=== PATIENT | female | born 1990 | race Caucasian/White ===

== ENCOUNTER → 2020-08-02 15:50 | Outpatient (CLI) | payer OTHER, SELFPAY ==
--- NOTE | ~2020-08-02 | US_ITS ---
EXAMINATION: US OB >= 14 weeks Fetus DATE: 08/02/2020 16:37 INDICATION: survey TECHNIQUE: Multiple obstetric sonographic images performed. FINDINGS: No prior studies for comparison. There is a single living fetus in vertex presentation. The placenta is anterior without placenta pre via. Amniotic fluid volume is normal. cardiac activity and movement is noted with a heart rate of 150 beats per minute. The following anatomy was identified as normal: 4 chamber heart 3 vessel cord cord insertion kidneys urinary bladder stomach spine diaphragm ventricles cisterna magna cerebellum The following biometric data were obtained: BPD: 52mm corresponds to gestational age 21 weeks 5 days. Head circumference: 186 mm corresponds to gestational age 21 weeks 0 days. Abdominal circumference: 159 mm corresponds to gestational age 21 weeks 0 days. Femur length: 33 mm corresponds to gestational age 20 weeks 2 days. Head circumference to abdominal circumference ratio: 1.17 (normal range for expected gestational age is 1.06-1.25). Estimated weight: 375 grams +/- 56 grams using Hadlock method. IMPRESSION: 1: Single living intrauterine with an estimated gestational age of 21weeks 0days by current ultrasound measurements, with an EDC of 12/13/2020 in vertex presentation. 2. Normal survey. Reviewed, dictated and finalized at location A. IMPRESSION: 1: Single living intrauterine with an estimated gestational age of 21 weeks 0days by current ultrasound measurements, with an EDC of 12/13/2020 in ve rtex presentation. 2. Normal survey.
== END ==
PROVIDERS: PCP Internal Medicine; Visit Provider Nurse Practitioner
DX: Z36.9 Encounter for antenatal screening, unspecified (principal); Z3A.21 21 weeks gestation of pregnancy
CPT/HCPCS: 76805

== ENCOUNTER → 2020-09-23 13:47 | Outpatient (CLI) | payer OTHER, SELFPAY ==
--- NOTE | ~2020-09-23 | US_ITS ---
EXAMINATION: US OB follow up EXAM DATE: 09/23/2020 14:06 INDICATION: Size less than dates . 2nd trimester. TECHNIQUE: Pelvic obstetrical transabdominal sonogram was performed by a technologist. There are mu ltiple grayscale and Doppler images available for interpretation. Comparison is made to prior examina tion from 08/02/2020. FINDINGS: There is a single fetus identified in vertex presentation with a heart rate of 150 beats pe r minute. The placenta is located in the anterior position. There is no sonographic evidence of retr oplacental hemorrhage identified. The amniotic fluid index is 16.7 centimeters, which is normal. BIOMETRIC DATA: Biparietal diameter (BPD): 7.1cm ----------------> 28 weeks 3 days. Head circumference (HC): 26.1 cm ----------------> 28 weeks 2 days. Abdominal circumference (AC): 23.0 cm ----------> 27 weeks 2 days. Femur length (FL): 5.1 cm --------------------------> 27 weeks 1 day. These measurements are concordant. HC/AC ratio is 1.14 (The 5th -- 95th percentile range is 1.02-1.22. Estimated weight is 1075 g +/- 161 g. This is the 32nd percentile when the currently reported clinical gestation age 27 weeks 4 days, clinical estimated date of delivery (NICOLETTE-OPE) 12/19 is used. F etal estimated gestational age based on measurements from this exam is 27 weeks 6 days, with an estim ated date of delivery (NICOLETTE-AUA) 12/17. IMPRESSION: 1. Single fetus in vertex presentation with heart rate 150 beats per minute. 2. Estimated weight of 1075 grams, 32nd percentile using the currently reported clinical gesta tion age of 27 weeks 4 days, NICOLETTE(OPE) 12/19. 3. Normal DIMA 16.7 cm. Reviewed, dictated and finalized at location A. TH POLICY MANAGER IMPRESSION: 1. Single fetus in vertex presentation with heart rate 150 beats per minute. 2. Estimated weight of 1075 grams, 32nd percentile using the currently r eported clinical gestation age of 27 weeks 4 days, NICOLETTE(OPE) 12/19. 3. Normal DIMA 16.7 cm.
== END ==
PROVIDERS: Visit Provider Nurse Practitioner
DX: Z34.92 Encounter for supervision of normal pregnancy, unspecified, second trimester (principal); Z3A.27 27 weeks gestation of pregnancy
CPT/HCPCS: 76816

== ENCOUNTER 2020-09-26 15:40 | Outpatient (CLI) | payer OTHER, SELFPAY ==
[2020-09-26 17:37] LABS: Hematocrit 37.8 % (37.0-47.0)
[2020-09-26 17:48] LABS: Glucose 1 Hour PP 50gm Dose 117 mg/dL
[2020-09-26 18:29] LABS: HIV 1/2 Ab P24 Ag Result Negative (Negative)
[2020-09-26 19:44] LABS: Free T4 Free Thyroxine 1.17 ng/mL (0.78-2.19); Vitamin D 25 Hydroxy 65.5 ng/mL
[2020-09-27] MEDS: RHO(D) IMMUNE GLOBULIN 300 MCG SYRINGE IM (08:51)
== END 2020-09-26 15:41 | disposition home or self-care (01) ==
LOC: ANHLAB 15:43
PROVIDERS: PCP Internal Medicine; Visit Provider Obstetrics & Gynecology Gynecology
DX: Z34.03 Encounter for supervision of normal first pregnancy, third trimester (principal); Z3A.00 Weeks of gestation of pregnancy not specified
CPT/HCPCS: 36415; 82306; 82947; 84439; 84443; 85014; 85018; 85461; 86703; 90384; 96372; G0432; J2790

== ENCOUNTER 2020-12-13 05:20 | Inpatient (IN) | payer BC, SELFPAY ==
[2020-12-13] VITALS (19 sets, daily range): BP systolic 111–148; BP diastolic 70–98; PULSE 67–218; RESP 16–20; TEMP 36.5–37.2; O2SAT 80–98; BMI 30.4
--- NOTE | 2020-12-13 05:20 | LDADM ---
This patient, Brenda Wise, was admitted to Labor/Delivery/Recovery 105 on 12/13/20 at 05:20. Plans for labor, pain management and were discussed with patient. Patient/family oriented to hospital policies and general routines including ID bracelet, bed and alarms, visiting hours, pain management, procedures, bathroom and other care routines, personal items, smoking policy, room service/diet and guest tray routines, infant security routines, and visiting hours. Patient/Family are encouraged to report perceived risks to care and to ask questions if they do not understand what they are told or what they should do. See OBIX for further documentation.
[2020-12-13 06:15] LABS: Basophils Percent Auto 0.4 % (0.2-1.2); Eosinophils Percent Auto 0.4 % (0-4.4); Hematocrit 40.2 % (37.0-47.0); Hemoglobin 13.7 g/dL (12.0-15.0); Immature Granulocyte Absolute 0.07 K/mm3 (0.00-0.031); Immature Granulocyte Percent A 0.7 % (0-0.5); Lymphocytes Absolute Auto 1.63 K/mm3 (0.9-3.2); Lymphocytes Percent Auto 15.5 % (18.3-44.2); Mean Corpuscular HGB Conc 34.1 g/dl (32-36); Mean Corpuscular Hemoglobin 30.1 pg (26-34); Mean Corpuscular Volume 88.4 fl (80-100); Mean Platelet Volume 11.3 fl (7.4-10.4); Monocytes Absolute Auto 0.8 K/mm3 (0.1-0.6); Monocytes Percent Auto 7.4 % (2.6-8.5); Neutrophils Percent Auto 75.6 % (45.5-73.1); Platelet Count Result 207 k/mm3 (150-375); Red Blood Count 4.55 M/mm3 (4.2-5.4); Red Cell Distribution Width 12.6 % (11.5-14.5); White Blood Count 10.5 K/mm3 (4.5-10.0)
--- NOTE | 2020-12-13 07:39 | WPDOBADMIT ---
Obstetrics - Admit Note Admission Note: record reviewed. No pertinent additions to the history and/or any subsequent changes in the physical findings that are not consistent with the expected course of the were found. Additions to the history and/or subsequent changes in the physical findings follow. None.Here in labor. Now 3-/-2 AROM with clear fluid
[2020-12-13 08:12] LABS: Alanine Aminotransferase 14 U/L (4-35); Albumin Level 3.5 g/dL (3.5-5.1); Alkaline Phosphatase 115 U/L (38-126); Anion Gap 7 mmol/L (8-16); Aspartate Amino Transferase 23 U/L (14-36); Bilirubin,Total 0.8 mg/dL (0.2-1.3); Blood Urea Nitrogen 12 mg/dL (7-17); Calcium 8.7 mg/dL (8.4-10.2); Carbon Dioxide 22 mmol/L (22-30); Chloride 106 mmol/L (98-107); Estimated CRCL calculation 122 ml/min; Estimated Glomerular Filt Rate > 60; Glucose 93 mg/dL (65-105); Potassium 3.7 mmol/L (3.4-5.0); Sodium 135 mmol/L (137-145)
[2020-12-13 08:29] LABS: Uric Acid 5.2 mg/dL (2.5-7.5)
[2020-12-13] MEDS: fentaNYL CITRATE INJ (*CRX) 100 MCG/2 ML VIAL 50 MCG IV PUSH (09:59)
[2020-12-13 10:19] LABS: Rapid Plasma Reagin Non-Reactive (NonReactive)
[2020-12-13] MEDS: OXYTOCIN 30 UNITS/NS 500 ML 30 UNITS/500 ML BAG 999 UNITS IV CONT (10:55)
--- NOTE | 2020-12-13 11:07 | PM.OBPRVD ---
OB - Delivery Note Procedure Delivery date: 12/13/20 Procedure: Intrapartal events: None Induction method: none Delivery augmentation: rupture of membranes Delivery monitor: external FHT and external uterine Route of delivery: Laceration Description: Perineal - 2nd Degree (U-shaped with midline then up each labia majora) Delivery repair: vicryl (3-0 vicryl) Specimen: No Quantitative Blood Loss (ml): 652 Anesthesia type: Local Disposition: floor [place] Baby Date of : 12/13/20 Weeks of gestation at delivery: 39 Infant gender: Female presentation: vertex position: Right Occiput Anterior Placenta delivery description: Spontaneous cord vessel description: 3 Vessels score one minute: 9 score five minutes: 9
--- NOTE | 2020-12-13 11:09 | PM.OBDSVD ---
DS: Admitting Diagnosis Admitting Diagnosis Admitting Diagnosis: labor DS: Discharge Diagnosis Discharge Diagnosis (1) (normal spontaneous vaginal delivery): Code(s): O80 - Encounter for full-term uncomplicated delivery Status: Acute OB - DS: Summary OB Procedures : Ultrasound OB Procedures Intrapartum: Spontaneous Vag Delivery OB Procedures: : None Peripartum Data Infant Delivery Method: Natural Vaginal Laceration Description: Perineal - 2nd Degree complications: none Status at Discharge Functional status at discharge: independent ambulation Overall status at discharge: patient is progressing back to baseline Time Spent with Patient Time attestation: Total time spent providing and/or coordinating discharge services: DS: Data Data Completed and Pending Labs on day of discharge: Labs from last 24 hours 12/13/20 12/13/20 12/13/20 07:46 07:46 07:06 WBC RBC Hgb Hct MCV MCH MCHC RDW Plt Count MPV Immature Gran % (Auto) Neut % (Auto) Lymph % (Auto) [place] % (Auto) Eos % (Auto) Baso % (Auto) Lymph # (Auto) [place] # (Auto) Eos # (Auto) Baso # (Auto) Abs Immat Gran (auto) Absolute Neuts (auto) Absolute Nucleated RBC Nucleated RBC % Sodium 135 L Potassium 3.7 Chloride 106 Carbon Dioxide 22 Anion Gap 7 L BUN 12 Creatinine 0.60 L Estim Creat Clear Calc 122 Estimated GFR > 60 Glucose 93 Uric Acid 5.2 Calcium 8.7 Total Bilirubin 0.8 AST 23 ALT 14 Alkaline Phosphatase 115 Total Protein 7.0 Albumin 3.5 RPR Blood Type O Negative Antibody Screen Positive Antibody Identification Pending Antigen Identification Pending KAYLYNN, IgG Interpret Not Performed KAYLYNN, Poly Interpret Negative KAYLYNN, Complement Interp Pending 12/13/20 12/13/20 05:58 05:58 WBC 10.5 H RBC 4.55 Hgb 13.7 Hct 40.2 MCV 88.4 MCH 30.1 MCHC 34.1 RDW 12.6 Plt Count 207 MPV 11.3 H Immature Gran % (Auto) 0.7 H Neut % (Auto) 75.6 H Lymph % (Auto) 15.5 L [place] % (Auto) 7.4 Eos % (Auto) 0.4 Baso % (Auto) 0.4 Lymph # (Auto) 1.63 [place] # (Auto) 0.8 H Eos # (Auto) 0.0 Baso # (Auto) 0.0 Abs Immat Gran (auto) 0.07 H Absolute Neuts (auto) 8.0 H Absolute Nucleated RBC 0.0 Nucleated RBC % 0.0 Sodium Potassium Chloride Carbon Dioxide Anion Gap BUN Creatinine Estim Creat Clear Calc Estimated GFR Glucose Uric Acid Calcium Total Bilirubin AST ALT Alkaline Phosphatase Total Protein Albumin RPR Non-reactive Blood Type Antibody Screen Antibody Identification Antigen Identification KAYLYNN, IgG Interpret KAYLYNN, Poly Interpret KAYLYNN, Complement Interp Discharge Plan Discharge Attending physician on discharge: Nissa Ac Discharging Clinician: Nissa Ac Anticipated Discharge Date/Time: 12/15/20 11:10 Patient Disposition: Home, Self-Care Activity: may shower, may drive after 2 weeks and pelvic rest Diet: regular Patient Instructions: Antibiotic Form Stand Alone Forms: General Discharge Information Follow-up/Referrals: Nissa Ac MD [Physician] - 6 Weeks Discharge Medications: Continued levothyroxine [Synthroid] 100 mcg Tablet 100 mcg PO DAILY RF: 0 #2 Tablet 1 tablet PO DAILY RF: 0 ergocalciferol (vitamin D2) 1,250 mcg (50,000 unit) capsule 1,250 mcg PO WEEKLY RF: 0 duloxetine 30 mg capsule,delayed release(DR/EC) 30 mg PO DAILY RF: 0 Discontinued aspirin [Aspirin Low Dose] 81 mg Tablet,Delayed Release (Dr/Ec) 81 mg PO DAILY RF: 0 Date of admission: 12/13/20 05:20 Primary Care Provider: Lucina,Rebecca Dickerson Admitting Provider: Nissa Ac Attending physician on admission: Nissa Ac Condition: Stable
[2020-12-13] MEDS: OXYTOCIN 30 UNITS/NS 500 ML 30 UNITS/500 ML BAG 125 UNITS IV CONT (11:29)
[2020-12-13] MEDS: WITCH HAZEL 40 PADS 1 PAD TOPICAL (13:11)
[2020-12-13] MEDS: BENZOCAINE 20% AER SPR (*SP) 56 GM CAN 1 SPRAY TOPICAL (13:11)
[2020-12-13] MEDS: IBUPROFEN 600 MG TABLET PO ×2 (14:17→20:20)
--- NOTE | 2020-12-13 15:10 | PC.NURSE ---
Consulted with patient, mother reported infant eagerly fed for first feeding. Both nipples are excoriated, reviewed nipple care of lanolin after feedings and warm moist compresses several times per day until healed. Reviewed infant feeding cues, frequencies, duration of feedings, feeding elimination flow sheet, and signs of adequate intake. Demonstrated stimulation techniques to wake infant for feeding. Assisted with infant to breast. Reviewed positioning/alignment in cross cradle, holding breast in U hold and guided asymmetrical latch on. Infant was able to latch correctly. Infant nursed eagerly, with steady draws and frequent swallowing noted. Reviewed signs of a correct latch, effective nursing and suck swallow ratio. Infant was able to maintain latch without discomfort to mother. Nipple care reviewed. Instructed mother to call out for RN assistance if she is unable to latch infant for feeding or she has discomfort with nursing. Instructed feeding should be initiated three hours from start of last feeding or if feeding cues are noted before. Mother voiced understanding of information shared.
[2020-12-14 05:21] LABS: Hematocrit 28.5 % (37.0-47.0); Hemoglobin 9.6 g/dL (12.0-15.0)
[2020-12-14] MEDS: POLYSACCHARIDE IRON COMPLEX 150 MG CAPSULE PO ×2 (06:48→20:00)
[2020-12-14] MEDS: DOCUSATE SODIUM 100 MG CAPSULE PO ×2 (06:49→20:00)
[2020-12-14] MEDS: MULTIVIT/MIN/PREN/FOL AC/IRON TABLET 1 TAB PO (06:49)
[2020-12-14] MEDS: IBUPROFEN 600 MG TABLET PO ×2 (06:49→14:57)
[2020-12-14 07:00] VITALS: PULSE 77; RESP 18; O2SAT 100
[2020-12-14 07:50] VITALS: BP 123/80; PULSE 77; RESP 18; TEMP 36.8; O2SAT 100
--- NOTE | 2020-12-14 11:20 | PC.NURSE ---
Mother called out for assist with feeding. Consulted with patient, mother reports she began with nipple discomfort at latch during most of the feeding. had difficulties latching deeply and maintaining latch. Both nipples are reddened, nipple care reviewed and lanolin provided. Advised warm moist heat for 10 minutes then use gel pads provided. Mother was given a nipple shield for feedings. Mother has infant latched with shield for this feeding. Reviewed positioning/alignment in football, holding breast in C hold and guided asymmetrical latch on. was able to latch correctly within a few attempts. Infant nursed eagerly, with steady draws and frequent swallowing noted. Reviewed signs of a correct latch, effective nursing and suck swallow ratio. was able to maintain latch. Mother reported tenderness at times, had slipped to shallow latch. Demonstrated how to adjust latch more deeply while feeding. Mother quickly reports she can feel infant is latched more deeply and has minimal tenderness. Suggested to stimulate while feeding to keep awake and nursing effectively for increased stimulation and increased intake. Reviewed instructions on application and cleaning of shield. Discussed nipple shield precautions and possible complications. Patient able to return demonstration on proper application of shield. Discussed the need to initiate pumping if continues to nurse with the shield. Patient verbalizes understanding. Instructed mother to call out for RN assistance if she is unable to latch for feeding or she has discomfort with nursing. Instructed feeding should be initiated three hours from start of last feeding or if feeding cues are noted before. Mother voiced understanding of information shared.
--- NOTE | 2020-12-14 13:10 | PC.NURSE ---
Mother wishes instructions on her Spectra pump. Instructions given on breast pump care and usage, pumping schedule, nipple care, and collection and storage of breast milk. Encouraged [id number], breast massage and manual expression to stimulate supply. Assessed patient for correct flange size, placement and draw. Patient verbalizes and demonstrates understanding of instructions.
[2020-12-14] MEDS: WITCH HAZEL 40 PADS 1 PAD TOPICAL (14:58)
[2020-12-14] MEDS: BENZOCAINE 20% AER SPR (*SP) 56 GM CAN 1 SPRAY TOPICAL (14:58)
[2020-12-14 20:00] VITALS: BP 121/85; PULSE 80; RESP 16; TEMP 37.1
[2020-12-14] MEDS: DULoxetine HCL 30 MG CAPSULE.DR PO (21:00)
[2020-12-15] MEDS: IBUPROFEN 600 MG TABLET PO (05:55)
--- NOTE | 2020-12-15 07:30 | PC.NURSE ---
Patient viewed the discharge video Mother & Baby Care, The First Two Weeks . Patient was given the opportunity and encouraged to ask questions. Patient verbalized understanding of information shared and has been given the mother/baby guide for home reference.
--- NOTE | 2020-12-15 07:54 | PM.OBPNVD ---
OB - PN: Subj Subjective Date/time seen: 12/15/20 07:54 Patient comments: no complaints and pain well controlled baby status: doing well OB - PN: Obj Data Labs CBC & Chem 7: 12/14/20 05:04 12/13/20 07:46 OB - PN A/P Plan day: 1 Plan: routine care, discharge home and follow up 6 weeks Time Spent With Patient Time: Total time spent is greater than 50% in coordination of care (as documented) at patient's floor/unit and/or counseling patient: Exam : Bimanual exam- vagina & uterus: other (Uterus firm, nt @U)
[2020-12-15 08:00] VITALS: BP 132/79; PULSE 87; RESP 20; RESP 87; TEMP 36.5; O2SAT 100
[2020-12-15] MEDS: WITCH HAZEL 40 PADS 1 PAD TOPICAL (08:52)
[2020-12-15] MEDS: MULTIVIT/MIN/PREN/FOL AC/IRON TABLET 1 TAB PO (08:52)
[2020-12-15] MEDS: DOCUSATE SODIUM 100 MG CAPSULE PO (08:52)
[2020-12-15] MEDS: POLYSACCHARIDE IRON COMPLEX 150 MG CAPSULE PO (08:52)
[2020-12-15] MEDS: LANOLIN (LANSINOH) 7.5 GM CREAM 1 APPLIC TOPICAL (08:52)
[2020-12-15] MEDS: BENZOCAINE 20% AER SPR (*SP) 56 GM CAN 1 SPRAY TOPICAL (08:52)
--- NOTE | 2020-12-15 09:30 | PC.NURSE ---
Consult with pt., mother states infant has been more awake and eagerly latching. Mother has implemented supplementation after most feedings and plan to continue until her milk is in and infant is satisfied after . Mother states infant will freq latch without shield, reporting some tenderness with feedings. Advised the goal is to have infant latch correctly and nurse without discomfort to mother, weaning from shield does not need to be rushed. Mother continues to pump after feedings using her Spectra pump, which she denies difficulties or discomfort with use. Discussed weaning techniques from shield. Mother is able to independently latch infant with appropriate positioning/alignment. She is feeding as required and waking to feed if needed. Infant has had several effective feedings followed with supplementation in the past 24 hours, and is currently meeting outcomes for weight, output, jaundice and feeding frequencies. Mother states she feels confident to continue current feeding plan at home. Reviewed transition to breast milk, signs of adequate intake, and engorgement/relief. Instructed to call ICP if intake/output less than required. Reviewed regular medications mother is taking. Information provided per Elly. Reviewed community resources on the [employer] website and in the Mom/Baby guide. Mother understand she can return for assist with latch or weaning from shield. Information on outpatient services provided. Mother has no further questions at this time.
--- NOTE | 2020-12-15 09:36 | PC.NURSE ---
Self care and infant care discharge instructions given including follow up visit date and time. Pt. verbalized understanding. No questions or concerns voiced. Very pleasant and cooperative.
[2020-12-16 11:27] VITALS: BP 125/76; PULSE 86; RESP 16; TEMP 36.5; O2SAT 100
== END 2020-12-15 12:35 | disposition home or self-care (01) | DRG 807 ==
LOC: ANHLDR 11:10 → ANHOB2 13:58
PROVIDERS: Admitting Provider Obstetrics & Gynecology Gynecology; PCP Internal Medicine; Visit Provider Obstetrics & Gynecology Gynecology
DX: O99.284 Endocrine, nutritional and metabolic diseases complicating childbirth (principal); Z37.0 Single live birth; Z3A.39 39 weeks gestation of pregnancy; E06.3 Autoimmune thyroiditis; O70.1 Second degree perineal laceration during delivery; O99.344 Other mental disorders complicating childbirth; F41.8 Other specified anxiety disorders
CPT/HCPCS: 36415; 80053; 84550; 85014; 85018; 85025; 86592; 86850; 86880; 86900; 86901; 86902; A9270; J2590; J3010

== ENCOUNTER → 2023-04-04 09:45 | Outpatient (CLI) | payer BC, SELFPAY | PROVIDERS: PCP Internal Medicine; Visit Provider Internal Medicine | DX: M79.671 Pain in right foot (principal) | CPT/HCPCS: 73630 ==

== ENCOUNTER 2024-03-25 07:42 | Outpatient (RCR) | payer BC, SELFPAY ==
[2024-03-25 09:20] LABS: Hematocrit 36.4 % (37.0-47.0); Hemoglobin 11.7 g/dL (12.0-15.0)
[2024-03-25 09:32] LABS: Glucose 1 Hour PP 50gm Dose 101 mg/dL
[2024-03-25 10:15] LABS: HIV 1/2 Ab P24 Ag Result Negative (Negative)
[2024-03-26 11:38] LABS: Rapid Plasma Reagin Non-Reactive (NonReactive)
[2024-03-26] MEDS: RHO(D) IMMUNE GLOBULIN 300 MCG/2 ML SYRINGE IM (16:30)
== END 2024-06-23 23:59 | disposition home or self-care (01) ==
LOC: ANHLAB 07:42
PROVIDERS: PCP Internal Medicine; Visit Provider Obstetrics & Gynecology Gynecology
DX: Z11.4 Encounter for screening for human immunodeficiency virus [HIV] (principal); Z11.3 Encounter for screening for infections with a predominantly sexual mode of transmission; Z29.13 Encounter for prophylactic Rho(D) immune globulin; O36.0190 Maternal care for anti-D [Rh] antibodies, unspecified trimester, not applicable or unspecified; Z3A.00 Weeks of gestation of pregnancy not specified
CPT/HCPCS: 36415; 82306; 82947; 85014; 85018; 85461; 86592; 86703; 86850; 86900; 86901; 90384; 96372; G0432; J2790

== ENCOUNTER 2024-05-18 17:19 | Outpatient (CLI) | payer BC, SELFPAY ==
[2024-05-18] VITALS (30 sets, daily range): BP systolic 133–146; BP diastolic 91–96; PULSE 64–82; O2SAT 98–100; BMI 34.4
[2024-05-18 18:05] LABS: Basophils Percent Auto 0.4 % (0.2-1.2); Eosinophils Percent Auto 0.2 % (0-4.4); Hematocrit 39.6 % (37.0-47.0); Immature Granulocyte Absolute 0.04 K/mm3 (0.00-0.031); Immature Granulocyte Percent A 0.5 % (0-0.5); Lymphocytes Absolute Auto 1.89 K/mm3 (0.9-3.2); Lymphocytes Percent Auto 22.9 % (18.3-44.2); Mean Corpuscular HGB Conc 32.8 g/dl (32-36); Mean Corpuscular Hemoglobin 30.1 pg (26-34); Mean Corpuscular Volume 91.7 fl (80-100); Mean Platelet Volume 11.8 fl (7.4-10.4); Monocytes Absolute Auto 0.6 K/mm3 (0.1-0.6); Monocytes Percent Auto 7.5 % (2.6-8.5); Neutrophils Absolute Auto 5.7 K/mm3 (1.3-6.7); Neutrophils Percent Auto 68.5 % (45.5-73.1); Platelet Count Result 156 k/mm3 (150-375); Red Blood Count 4.32 M/mm3 (4.2-5.4); White Blood Count 8.3 K/mm3 (4.5-10.0)
[2024-05-18 18:13] LABS: Add Urine Microscopic? YES; Appearance Urine Clear (Clear); Bacteria Urine 2+ /hpf; Bilirubin Urine Negative (Negative); Blood Urine Negative (Negative); Color Urine Yellow (Yellow); Glucose Urine UA Negative (Negative); Ketones Urine Trace mg/dL (Negative); Leukocyte Esterase Ur Trace LEU/UL (Negative); Nitrate Urine Negative (Negative); Non Pathogenic Casts 0-2; Protein Urine Trace mg/dL (Negative); RBC Urine 0-2 /hpf (0-2); Specific Grav Ur 1.022 (1.001-1.035); Squamous Epithelial Cell Urine Occasional /hpf (Few); Urobilinogen Urine 0.2 mg/dL (<2.0); pH Urine 7.5 (5.0-9.0)
[2024-05-18 18:16] LABS: Alanine Aminotransferase 25 U/L (6-35); Albumin Level 3.8 g/dL (3.5-5.1); Alkaline Phosphatase 146 U/L (38-126); Anion Gap 12 mmol/L (4-12); Aspartate Amino Transferase 37 U/L (14-36); Bilirubin,Total 0.8 mg/dL (0.2-1.3); Blood Urea Nitrogen 13 mg/dL (7-17); Calcium 9.3 mg/dL (8.4-10.2); Carbon Dioxide 21 mmol/L (22-30); Chloride 102 mmol/L (98-107); Estimated Glomerular Filt Rate > 60; Glucose 76 mg/dL (65-110); Potassium 4.3 mmol/L (3.4-5.0); Sodium 135 mmol/L (137-145); Uric Acid 6.7 mg/dL (2.5-7.5)
--- NOTE | 2024-05-18 18:17 | OBADM ---
This patient, Brenda Wise, admitted to the OB room Labor/Delivery/Recovery 118 for observation. Patient/family oriented to hospital policies and general routines including ID bracelet, bed and alarms, visiting hours, pain management, procedures, bathroom and other care routines, personal items, smoking policy, room service/diet, and visiting hours. Patient/Family are encouraged to report perceived risks to care and to ask questions if they do not understand what they are told or what they should do.
[2024-05-18 19:01] LABS: Creatinine Urine 163.9 mg/dL
[2024-05-18 19:23] LABS: Total Protein Urine Random < 5 mg/dL; Ur Ttl Prot Creatinine Ratio < 0.03 mg/mg (0-0.20)
--- NOTE | 2024-05-18 19:39 | PC.NURSE ---
Talked to Doctor Osorio at this time. Reported labs, maternal and status. orders for 24 hour urine and to call Saturday for results, dc orders given and to go home on bedrest
== END 2024-05-18 20:31 | disposition home or self-care (01) ==
LOC: ANHOBOP 17:24 → ANHLDR 17:25
PROVIDERS: PCP Internal Medicine; Visit Provider Obstetrics & Gynecology Gynecology
DX: O13.9 Gestational [pregnancy-induced] hypertension without significant proteinuria, unspecified trimester (principal); Z3A.00 Weeks of gestation of pregnancy not specified
CPT/HCPCS: 36415; 59025; 80053; 81001; 82570; 84156; 84550; 85025; 87086; 99199

== ENCOUNTER 2024-05-19 10:03 | Outpatient (CLI) | payer BC, SELFPAY ==
[2024-05-19 10:25] VITALS: BP 125/86
[2024-05-19 10:30] VITALS: BP 125/86; PULSE 79
[2024-05-19 10:45] VITALS: BP 124/85; PULSE 76
[2024-05-19 11:00] VITALS: BP 126/80; PULSE 72
== END 2024-05-19 11:30 | disposition home or self-care (01) ==
LOC: ANHOBOP 10:07 → ANHLDR 10:11
PROVIDERS: PCP Internal Medicine; Visit Provider Obstetrics & Gynecology Gynecology
DX: O13.9 Gestational [pregnancy-induced] hypertension without significant proteinuria, unspecified trimester (principal); Z3A.00 Weeks of gestation of pregnancy not specified
CPT/HCPCS: 59025; 99199

== ENCOUNTER 2024-05-19 21:37 | Outpatient (NON) | payer BC, SELFPAY ==
[2024-05-19 21:57] VITALS: BMI 35.2
[2024-05-19 22:11] LABS: Collection Time Urine 24 HOURS; Patient Weight 205 Lbs
[2024-05-19 22:21] LABS: Creatinine Urine 79.2 mg/dL; Total Protein Urine Random 7 mg/dL
[2024-05-19 22:25] LABS: Creatinine Clearance Urine 114.7 ml/min (75-125); Total Protein Urine 24 Hr 133 mg/24hr (28-141); Total Volume 24 Hour Urine 1900 ml
== END 2024-05-19 21:38 | disposition home or self-care (01) ==
LOC: ANHOBOP 21:46
PROVIDERS: PCP Internal Medicine; Visit Provider Obstetrics & Gynecology Gynecology
DX: O13.9 Gestational [pregnancy-induced] hypertension without significant proteinuria, unspecified trimester (principal); R80.9 Proteinuria, unspecified; Z3A.00 Weeks of gestation of pregnancy not specified
CPT/HCPCS: 59025; 81050; 82575; 84156; 99199

== ENCOUNTER 2024-05-28 05:02 | Inpatient (IN) | payer BC, SELFPAY ==
[2024-05-28] VITALS (234 sets, daily range): BP systolic 123–171; BP diastolic 67–113; PULSE 59–296; RESP 18; TEMP 36.4–38.1; O2SAT 86–100; BMI 35.7
--- NOTE | 2024-05-28 05:45 | LDADM ---
This patient, Brenda Wise, was admitted to Labor/Delivery/Recovery 102 on 05/28/24 at 05:02. Plans for labor, pain management and were discussed with patient. Patient/family oriented to hospital policies and general routines including ID bracelet, bed and alarms, visiting hours, pain management, procedures, bathroom and other care routines, personal items, smoking policy, room service/diet and guest tray routines, infant security routines, and visiting hours. Patient/Family are encouraged to report perceived risks to care and to ask questions if they do not understand what they are told or what they should do. See OBIX for further documentation.
[2024-05-28 05:47] LABS: Basophils Percent Auto 0.5 % (0.2-1.2); Eosinophils Percent Auto 0.5 % (0-4.4); Hematocrit 38.2 % (37.0-47.0); Hemoglobin 13.1 g/dL (12.0-15.0); Immature Granulocyte Absolute 0.04 K/mm3 (0.00-0.031); Immature Granulocyte Percent A 0.5 % (0-0.5); Lymphocytes Absolute Auto 2.11 K/mm3 (0.9-3.2); Mean Corpuscular HGB Conc 34.3 g/dl (32-36); Mean Corpuscular Hemoglobin 30.5 pg (26-34); Mean Corpuscular Volume 88.8 fl (80-100); Mean Platelet Volume 11.8 fl (7.4-10.4); Monocytes Absolute Auto 0.5 K/mm3 (0.1-0.6); Monocytes Percent Auto 5.9 % (2.6-8.5); Neutrophils Absolute Auto 5.4 K/mm3 (1.3-6.7); Neutrophils Percent Auto 66.6 % (45.5-73.1); Platelet Count Result 141 k/mm3 (150-375); Red Cell Distribution Width 12.8 % (11.5-14.5); White Blood Count 8.1 K/mm3 (4.5-10.0)
[2024-05-28] MEDS: LACTATED RINGERS 1,000 ML 125 ML IV CONT ×2 (06:32→07:53)
[2024-05-28 06:37] LABS: HIV 1/2 Ab P24 Ag Result Negative (Negative)
[2024-05-28] MEDS: ceFAZolin 2 GM/D5W 50 ML 2 GM/50 ML BAG IVPB (06:50)
[2024-05-28] MEDS: LABETALOL HCL 100 MG TABLET PO ×2 (07:10→09:49)
--- NOTE | 2024-05-28 07:21 | WPDOBADMIT ---
Obstetrics - Admit Note Admission Note: record reviewed. Pertinent additions to the history and/or any subsequent changes in the physical findings that are not consistent with the expected course of the were found. Additions to the history and/or subsequent changes in the physical findings follow. The Patient was admitted at 37-,1/7 weeks with di-di twins in the vertex breech presentation for induction of labor. complicated by gestational hypertension which was the indication for early delivery. Many discussions in the office regarding diet twin deliveries and presentation. Twin B is 1lb smaller than twin A therefore if twin B remains breech at the time of delivery of twin a the patient is okay with a breech extraction of twin B if it does not rotate. Risks of emergency for twin B have been discussed in detail as well. The patient has decided to get an epidural. She prefers of rupture of membranes and observation to see if she goes into labor. The recommendation if not liseth significantly by 2hours to start Pitocin and patient was agreeable. Bedside ultrasound reveals vertex/breech presentation Cervix 4/50/-2 with anterior cervix, artificial rupture of membranes with clear fluid. heart tones category 1x2 Blood pressures have had 100s in the diastolics since admission therefore labetalol 100mg has been ordered.
[2024-05-28 07:27] LABS: Alanine Aminotransferase 19 U/L (6-35); Albumin Level 3.5 g/dL (3.5-5.1); Alkaline Phosphatase 162 U/L (38-126); Anion Gap 11 mmol/L (4-12); Aspartate Amino Transferase 29 U/L (14-36); Bilirubin,Total 0.7 mg/dL (0.2-1.3); Blood Urea Nitrogen 15 mg/dL (7-17); Calcium 8.9 mg/dL (8.4-10.2); Carbon Dioxide 18 mmol/L (22-30); Chloride 105 mmol/L (98-107); Estimated CRCL calculation 88 ml/min; Estimated Glomerular Filt Rate > 60; Glucose 94 mg/dL (65-110); Potassium 3.6 mmol/L (3.4-5.0); Sodium 134 mmol/L (137-145); Uric Acid 7.5 mg/dL (2.5-7.5)
[2024-05-28 07:56] LABS: Rapid Plasma Reagin Non-Reactive (NonReactive)
--- NOTE | 2024-05-28 07:58 | WPDANESEPP ---
Anes - Eval Pre Procedure Procedure: Operation Date: 06/03/24 07:30 Proposed Procedures p Section - Nissa Ac MD Date/Time: 05/28/24 07:58 Surgeon: Osorio Preop Diagnosis: Pain during labor Pre Op Diagnosis: IOL Patient Data Age: 34 Gender: F Height: 1.63 m Weight: 94.5 kg Last Vital Signs Temp 37.4 C 05/28/24 07:42 Pulse 73 05/28/24 07:30 BP 144/103 H 05/28/24 07:30 Pulse Ox 99 05/28/24 07:56 O2 Del Method Room Air 05/28/24 05:17 Allergies Allergy/AdvReac Type Severity Reaction Status Date / Time Penicillins Allergy Hives Verified 05/18/24 18:10 Home Medications Medication Instructions Recorded Confirmed Type prenat.vits,brian,[id number] 1 tablet PO DAILY 11/21/20 05/18/24 History aspirin 81 mg tablet 81 mg PO DAILY 05/06/24 05/18/24 History levothyroxine 125 mcg tablet 125 mcg PO DAILY 05/06/24 05/18/24 History (Synthroid) sertraline 50 mg tablet 50 mg PO DAILY 05/06/24 05/18/24 History Laboratory Tests 05/28/24 05/28/24 05:40 07:02 WBC 8.1 K/mm3 (4.5-10.0) RBC 4.30 M/mm3 (4.2-5.4) Hgb 13.1 g/dL (12.0-15.0) Hct 38.2 % (37.0-47.0) MCV 88.8 fl (80-100) MCH 30.5 pg (26-34) MCHC 34.3 g/dl (32-36) RDW 12.8 % (11.5-14.5) Plt Count 141 L k/mm3 (150-375) MPV 11.8 H fl (7.4-10.4) Immature Gran % (Auto) 0.5 % (0-0.5) Neut % (Auto) 66.6 % (45.5-73.1) Lymph % (Auto) 26.0 % (18.3-44.2) [place] % (Auto) 5.9 % (2.6-8.5) Eos % (Auto) 0.5 % (0-4.4) Baso % (Auto) 0.5 % (0.2-1.2) Lymph # (Auto) 2.11 K/mm3 (0.9-3.2) [place] # (Auto) 0.5 K/mm3 (0.1-0.6) Eos # (Auto) 0.0 K/mm3 (0-0.3) Baso # (Auto) 0.0 K/mm3 (0.0-0.1) Abs Immat Gran (auto) 0.04 H K/mm3 (0.00-0.031) Absolute Neuts (auto) 5.4 K/mm3 (1.3-6.7) Absolute Nucleated RBC 0.000 K/mm3 (0.0-0.012) Nucleated RBC % 0.0 % (0.0-0.2) Sodium 134 L mmol/L (137-145) Potassium 3.6 mmol/L (3.4-5.0) Chloride 105 mmol/L (98-107) Carbon Dioxide 18 L mmol/L (22-30) Anion Gap 11 mmol/L (4-12) BUN 15 mg/dL (7-17) Creatinine 0.90 mg/dL (0.7-1.0) Estim Creat Clear Calc 88 ml/min Estimated GFR > 60 (59 - ) Glucose 94 mg/dL (65-110) Uric Acid 7.5 mg/dL (2.5-7.5) Calcium 8.9 mg/dL (8.4-10.2) Total Bilirubin 0.7 mg/dL (0.2-1.3) AST 29 U/L (14-36) ALT 19 U/L (6-35) Alkaline Phosphatase 162 H U/L (38-126) Total Protein 7.0 g/dL (6.3-8.2) Albumin 3.5 g/dL (3.5-5.1) RPR Non-reactive (NonReactive) HIV 1&2 Ab/P24 Ag 4thGn Negative (Negative) Blood Type O Negative Antibody Screen Positive Antibody Identification Pending Antigen Identification Pending KAYLYNN, IgG Interpret Neg KAYLYNN, Poly Interpret TNP KAYLYNN, Complement Interp Pending Patient hx anesthesia problems: none Family hx anesthesia problems: none Results Review: All pre-operative results and documents have been reviewed as part of the pre-operative evaluation. [facility] Family History Family History Father High cholesterol Prostate carcinoma Hypertension Mother Breast cancer in female High cholesterol Melanoma Hypertension Congestive heart failure Social History Social History Smoking status: Never smoker Second hand tobacco smoke exposure: No Substance use: never Do You Feel Safe in your Home?: No Lack of Transportation: No Lack of Food: Never True Current Housing: I Have Housing Concerned About Future Housing: No Difficulty Paying Gas/Electric Bills: No Difficulty Paying for M
[2024-05-28] MEDS: OXYTOCIN 30 UNITS/NS 500 ML 30 UNITS/500 ML BAG IV CONT (08:25)
[2024-05-28] MEDS: NIFEdipine 30 MG TAB.ER.24 PO (11:16)
--- NOTE | 2024-05-28 14:55 | PM.OBPRVD ---
OB - Vaginal Delivery Note Procedure Delivery date: 05/28/24 Events: Gestational Hypertension and Other (Di-Di twins) Induction method: AROM and Per Pitocin Protocol Delivery monitor: External FHT and External Uterine Route of delivery: other (Twin A -Twin B breech extraction) Episiotomy description: None Laceration Description: Perineal - 2nd Degree Delivery repair: vicryl (3-0) Specimen: Yes (placentas) Quantitative Blood Loss (ml): 400 Anesthesia type: Epidural Disposition: Floor Complications: No immediate complications [place] Baby Date of : 05/28/24 Gestational Age by Date: 37 (37 10/13) Infant gender: Male Weight (pounds): 7 presentation: vertex position: Right Occiput Anterior Placenta delivery description: Spontaneous Cord Vessel Description: 3 Vessels score one minute: 3 score five minutes: 8 Narrative: Twin B Apgars and weight not assigned when I left OR 3 v cord
--- NOTE | 2024-05-28 14:59 | PM.OBDSVD ---
DS: Admitting Diagnosis Discharge Date 05/30/2024 <Delon Danielson MD - Last Filed: 05/30/24 07:00> Admitting Diagnosis IUP 37 10/13 di-di twins with gestational hypertension <Nissa Ac MD - Last Filed: 06/01/24 07:37> DS: Discharge Diagnosis Discharge Diagnosis (1) Dichorionic diamniotic twin gestation: Code(s): O30.049 - Twin , dichorionic/diamniotic, unspecified trimester <Nissa Ac MD - Last Filed: 06/01/24 07:37> Status: Acute <Nissa Ac MD - Last Filed: 06/01/24 07:37> (2) 37 or more weeks gestation of : Status: Acute <Nissa Ac MD - Last Filed: 06/01/24 07:37> (3) Gestational hypertension: Code(s): O13.9 - Gestational [-induced] hypertension without significant proteinuria, unspecified trimester <Nissa Ac MD - Last Filed: 06/01/24 07:37> Status: Acute <Nissa Ac MD - Last Filed: 06/01/24 07:37> (4) Twin delivered vaginally: Code(s): O30.009 - Twin , unspecified number of placenta and unspecified number of amniotic sacs, unspecified trimester <Nissa Ac MD - Last Filed: 06/01/24 07:37> Status: Acute <Nissa Ac MD - Last Filed: 06/01/24 07:37> (5) hemorrhage: Code(s): O72.1 - Other immediate hemorrhage <Nissa Ac MD - Last Filed: 06/01/24 07:37> Status: Acute <Nissa Ac MD - Last Filed: 06/01/24 07:37> Assessment and Plan: patient received 2units of packed red blood cells <Nissa Ac MD - Last Filed: 06/01/24 07:37> OB - DS: Summary OB Procedures : NST, PIH Mgmt and Ultrasound <Nissa Ac MD - Last Filed: 06/01/24 07:37> OB Procedures Intrapartum: Other (Twin A= ; Twin B=breech extraction) <Nissa Ac MD - Last Filed: 06/01/24 07:37> OB Procedures: : None <Nissa Ac MD - Last Filed: 06/01/24 07:37> Peripartum Data Delivery Method: Natural Vaginal <Nissa Ac MD - Last Filed: 06/01/24 07:37> Laceration Description: Perineal - 2nd Degree <Nissa Ac MD - Last Filed: 06/01/24 07:37> Episiotomy description: None <Nissa Ac MD - Last Filed: 06/01/24 07:37> Procedures: Procedures Operation Date: 06/03/24 07:30 <No data on this case meets the specified criteria> <Nissa Ac MD - Last Filed: 06/01/24 07:37> complications: uterine atony ( treated with Cytotec, Alondra device, 2units of packed red blood cells) <Nissa Ac MD - Last Filed: 06/01/24 07:37> Status at Discharge Functional status at discharge: independent ambulation <Nissa Ac MD - Last Filed: 06/01/24 07:37> Overall status at discharge: patient is progressing back to baseline <Nissa Ac MD - Last Filed: 06/01/24 07:37> Time Spent with Patient Time attestation: Total time spent providing and/or coordinating discharge services: <Nissa Ac MD - Last Filed: 06/01/24 07:37> DS: Data Data Completed and Pending Labs on day of discharge: Labs from last 24 hours 05/28/24 05/28/24 07:02 05:40 WBC 8.1 RBC 4.30 Hgb 13.1 Hct 38.2 MCV 88.8 MCH 30.5 MCHC 34.3 RDW 12.8 Plt Count 141 L MPV 11.8 H Immature Gran % (Auto) 0.5 Neut % (Auto) 66.6 Lymph % (Auto) 26.0 [place] % (Auto) 5.9 Eos % (Auto) 0.5 Baso % (Auto) 0.5 Lymph # (Auto) 2.11 [place] # (Auto) 0.5 Eos # (Auto) 0.0 Baso # (Auto) 0.0 Abs Immat Gran (auto) 0.04 H Absolute Neuts (auto) 5.4 Absolute Nucleated RBC 0.000 Nucleated RBC % 0.0 Sodium 134 L Potassium 3.6 Chloride 105 Carbon Dioxide 18 L Anion Gap 11 BUN 15 Creatinine 0.90 Estim Creat Clear Calc 88 Estimated GFR >
[2024-05-28] MEDS: miSOPROStol 200 MCG TABLET 800 MCG RECTAL (15:02)
[2024-05-28] MEDS: OXYTOCIN 30 UNITS/NS 500 ML 30 UNITS/500 ML BAG 125 UNITS IV CONT (15:36)
[2024-05-28] MEDS: miSOPROStol 200 MCG TABLET (15:55)
--- NOTE | 2024-05-28 16:07 | P.PNOB_ITS ---
OB - PN: Subj Subjective Date/time seen: 05/28/24 16:07 Interval history: Called with passing about total of 500 clots. On arrival, team ob had been called. Had been given cytotec 1000 meq. Uterus evacuated of 350 cc clots. Sallie placed. Tubing filled immediately and then slowed to minimal. No vaginal bleeding around the Sallie. Continue close observation. OB - PN: Obj Data Labs 05/28/24 05:40 05/28/24 07:02 Labs: Laboratory Results - last 24 hr 05/28/24 05/28/24 05:40 07:02 WBC 8.1 RBC 4.30 Hgb 13.1 Hct 38.2 MCV 88.8 MCH 30.5 MCHC 34.3 RDW 12.8 Plt Count 141 L MPV 11.8 H Immature Gran % (Auto) 0.5 Neut % (Auto) 66.6 Lymph % (Auto) 26.0 [place] % (Auto) 5.9 Eos % (Auto) 0.5 Baso % (Auto) 0.5 Lymph # (Auto) 2.11 [place] # (Auto) 0.5 Eos # (Auto) 0.0 Baso # (Auto) 0.0 Abs Immat Gran (auto) 0.04 H Absolute Neuts (auto) 5.4 Absolute Nucleated RBC 0.000 Nucleated RBC % 0.0 Sodium 134 L Potassium 3.6 Chloride 105 Carbon Dioxide 18 L Anion Gap 11 BUN 15 Creatinine 0.90 Estim Creat Clear Calc 88 Estimated GFR > 60 Glucose 94 Uric Acid 7.5 Calcium 8.9 Total Bilirubin 0.7 AST 29 ALT 19 Alkaline Phosphatase 162 H Total Protein 7.0 Albumin 3.5 RPR Non-reactive HIV 1&2 Ab/P24 Ag 4thGn Negative Blood Type O Negative Antibody Screen Positive Antibody Identification Passive Due to RH Imm Glob Antigen Identification TNP KAYLYNN, IgG Interpret Neg KAYLYNN, Poly Interpret TNP KAYLYNN, Complement Interp Negative OB - PN A/P Time Spent With Patient Time: Total time spent is greater than 50% in coordination of care (as documented) at patient's floor/unit and/or counseling patient:
[2024-05-28 16:18] LABS: Basophils Absolute Auto 0.1 K/mm3 (0.0-0.1); Basophils Percent Auto 0.4 % (0.2-1.2); Hematocrit 33.5 % (37.0-47.0); Hemoglobin 11.5 g/dL (12.0-15.0); Immature Granulocyte Absolute 0.07 K/mm3 (0.00-0.031); Immature Granulocyte Percent A 0.4 % (0-0.5); Lymphocytes Absolute Auto 1.28 K/mm3 (0.9-3.2); Lymphocytes Percent Auto 7.7 % (18.3-44.2); Mean Corpuscular HGB Conc 34.3 g/dl (32-36); Mean Corpuscular Hemoglobin 30.9 pg (26-34); Mean Corpuscular Volume 90.1 fl (80-100); Mean Platelet Volume 12.1 fl (7.4-10.4); Monocytes Absolute Auto 0.8 K/mm3 (0.1-0.6); Monocytes Percent Auto 5.1 % (2.6-8.5); Neutrophils Absolute Auto 14.3 K/mm3 (1.3-6.7); Neutrophils Percent Auto 86.4 % (45.5-73.1); Platelet Count Result 155 k/mm3 (150-375); Red Blood Count 3.72 M/mm3 (4.2-5.4); Red Cell Distribution Width 12.9 % (11.5-14.5); White Blood Count 16.6 K/mm3 (4.5-10.0)
[2024-05-28 16:29] LABS: Partial Thromboplastin Time 28.4 Seconds (22.3-36.8); Prothrombin Time 13.7 Seconds (11.1-14.7)
[2024-05-28 16:30] LABS: Fibrinogen 422 mg/dl (215-510)
[2024-05-28 16:41] LABS: D Dimer 7.24 ug/mL (<0.48)
[2024-05-28] MEDS: ACETAMINOPHEN 325 MG TABLET 650 MG PO (16:57)
[2024-05-28] MEDS: OXYTOCIN 30 UNITS/NS 500 ML 30 UNITS/500 ML BAG 200 UNITS IV CONT (17:15)
[2024-05-28] MEDS: TRANEXAMIC ACID 1,000MG/ISO100 1,000 MG/100 ML BAG 200 MG IVPB (17:45)
[2024-05-28] MEDS: IBUPROFEN 600 MG TABLET PO (19:23)
[2024-05-28] MEDS: WITCH HAZEL 40 PADS 1 PAD TOPICAL (19:24)
[2024-05-28] MEDS: BENZOCAINE 20% AER SPR (*SP) 56 GM CAN 1 SPRAY TOPICAL (19:24)
[2024-05-28] MEDS: LACTATED RINGERS 1,000 ML 200 ML IV CONT (19:51)
--- NOTE | 2024-05-28 21:44 | PC.NURSE ---
Patient transferred to post room #277 via ( Stretcher ). Support person downstairs in nursery with other twin. Sallie in place, and connected to the appropriate suction amount. Oriented to unit, room, information board, rooming in, admission packet and security measures. Patient verbalizes understanding.
[2024-05-29] VITALS (7 sets, daily range): BP systolic 117–143; BP diastolic 70–100; PULSE 64–81; RESP 16–18; TEMP 36.6–37; O2SAT 98–100
[2024-05-29] MEDS: IBUPROFEN 600 MG TABLET PO ×3 (01:12→21:05)
[2024-05-29] MEDS: LACTATED RINGERS 1,000 ML 200 ML IV CONT (02:50)
--- NOTE | 2024-05-29 05:00 | PC.NURSE ---
Dr. Ac arrived on unit at 0350. This nurse accompanied Dr. Ac to patient's room. Md wanted suction for Sallie discontinued. Suction turned off at 0400. waited 10 minutes, and removed Sallie device. Minimal bleeding noted at that time. Changed luis f pad.
--- NOTE | 2024-05-29 08:15 | WPDANLDPN2 ---
Anes-Prog Note L&D Date/Time: 05/29/24 08:15 Neuro status: Neuro function grossly intact. Vital Signs: Last Vital Signs Temp 36.7 C 05/29/24 02:00 Pulse 71 05/29/24 02:00 Resp 16 05/29/24 02:00 BP 117/70 05/29/24 02:00 Pulse Ox 99 05/29/24 02:00 O2 Del Method Room Air 05/29/24 02:00 Pain score (VAS): 2 I/O: Intake & Output 05/28/24 05/29/24 05/29/24 23:59 07:59 15:59 Intake Total 500 2600 Output Total 1160 1475 Balance -660 1125 Patient feedback: Patient satisfied with anesthetic care.
[2024-05-29] MEDS: HYDROcodone/acetaminophen (*CRX) 5-325 MG TABLET 1 TAB PO (09:18)
[2024-05-29] MEDS: DOCUSATE SODIUM 100 MG CAPSULE PO (09:18)
[2024-05-29] MEDS: MULTIVIT/MIN/PREN/FOL AC/IRON TABLET 1 TAB PO (09:20)
--- NOTE | 2024-05-29 10:05 | PC.NURSE ---
Primary RN requested assistance for baby A. His blood sugar was good but he hasn't breastfeed yet because he was in level 2. Mom had baby skin to skin but he was sound asleep. We moved him to the crib to try to awaken him. A first he would not stir, but after a diaper change he was rooting and moving his head. We put him to the left breast in football hold. He opened side and latched immediately. Mother states there is a 'biting' pain with latching. She feels this with the other baby as well. We worked to ensure his lips were flanged and we had as much tissue in his mouth as possible. Mom's breast is firm and we aren't able to get anymore into his mouth. Encouraged her to be diligent in keeping his deep latch and not letting him get shallow. Instructed mom to feed for at least 15 minutes and we will recheck a sugar before the next feeding to ensure he's maintaining his glucose. Mom verbalized understanding. Reported to primary RN.
[2024-05-29 10:36] LABS: Hematocrit 24.5 % (37.0-47.0); Hemoglobin 8.4 g/dL (12.0-15.0)
[2024-05-29] MEDS: POLYSACCHARIDE IRON COMPLEX 150 MG CAPSULE PO ×2 (11:23→20:57)
--- NOTE | 2024-05-29 16:34 | PC.NURSE ---
1600. Primary RN requested assistance to check both babies latching and assist mom for this current feed. Mom had both baby A & B tandem feeding in the football position. Baby A with an optimal latch to the R breast, mom reported a little soreness at the beginning of the feed but feeling better now. We reviewed how the lips need to be flanged out creating a seal around the breast. Baby B was latched to the L breast and his upper lip was curled under, assisted mom to delatch and reattach baby with a better latching positioning of the mouth and lips.Audible swallows heard from both babies and eduated mom on the listening for the ka sound the swallowing makes. Mom encouraged to call the phone for future assistance with feeding or latching, mom verbalized understanding.
[2024-05-29] MEDS: LABETALOL HCL 100 MG TABLET 200 MG PO (23:12)
[2024-05-30 00:20] VITALS: BP 132/89
[2024-05-30 05:00] VITALS: BP 144/88; PULSE 72
--- NOTE | 2024-05-30 07:00 | PM.OBPNVD ---
OB - PN: Subj Subjective Date/time seen: 05/30/24 07:00 Interval history: Called with passing about total of 500 clots. On arrival, team ob had been called. Had been given cytotec 1000 meq. Uterus evacuated of 350 cc clots. Sallie placed. Tubing filled immediately and then slowed to minimal. No vaginal bleeding around the Sallie. Continue close observation. Patient comments: no complaints and pain well controlled baby status: doing well OB - PN: Obj Data Labs 05/29/24 10:21 05/28/24 07:02 Labs: Laboratory Results - last 24 hr 05/29/24 10:21 Hgb 8.4 L D Hct 24.5 L OB - PN A/P Plan day: 2 Plan: routine care, discharge home and follow up 6 weeks Time Spent With Patient Time: Total time spent is greater than 50% in coordination of care (as documented) at patient's floor/unit and/or counseling patient: Time with patient: less than 15 minutes
[2024-05-30 08:10] VITALS: BP 144/100; PULSE 70; RESP 16; TEMP 37; O2SAT 100
[2024-05-30] MEDS: LABETALOL HCL 100 MG TABLET 200 MG PO (08:10)
[2024-05-30] MEDS: DOCUSATE SODIUM 100 MG CAPSULE PO (08:11)
[2024-05-30] MEDS: POLYSACCHARIDE IRON COMPLEX 150 MG CAPSULE PO (08:11)
[2024-05-30] MEDS: IBUPROFEN 600 MG TABLET PO (08:12)
--- NOTE | 2024-05-30 09:30 | PC.NURSE ---
Patient called out with some and pumping questions. We discussed use of her [employer]ra electric pump which she is very familiar with. She also received a [employer] wearable pump from her insurance. We reviewed the manual and the recommended use settings. Mom felt much more comfortable with the pump after we talked. We discussed frequency and duration of pumping. Mom's nipples are sore and we discussed signs of a deep latch and to be sure her nipple doesn't look pinched after feedings. She said it does and we latched baby to the right breast in football, modifying the breast tissue with a sandwich bite for baby to grab on to. Mom said she could really tell a difference with this latch compared to how baby was latching previously. She has been tandem feeding both twins at once and her partner helps a lot. Parents are comfortable going home the twins. Mom has the outpatient resources and mom/baby guide for reference. Reported to primary RN.
[2024-05-30 13:00] VITALS: BP 147/88; PULSE 70
[2024-06-01 09:44] VITALS: BP 127/63; PULSE 78; RESP 18; TEMP 36.8; O2SAT 100
== END 2024-05-30 14:45 | disposition home or self-care (01) | DRG 768 ==
LOC: ANHLDR 15:02 → ANHOB2 22:02
PROVIDERS: Admitting Provider Advanced Practice Midwife; PCP Internal Medicine; Visit Provider Obstetrics & Gynecology Gynecology
DX: O13.4 Gestational [pregnancy-induced] hypertension without significant proteinuria, complicating childbirth (principal); Z37.2 Twins, both liveborn; O70.1 Second degree perineal laceration during delivery; O67.8 Other intrapartum hemorrhage; O72.1 Other immediate postpartum hemorrhage; O99.824 Streptococcus B carrier state complicating childbirth; O32.8XX2 Maternal care for other malpresentation of fetus, fetus 2; O30.043 Twin pregnancy, dichorionic/diamniotic, third trimester; Z3A.37 37 weeks gestation of pregnancy
CPT/HCPCS: 36415; 80053; 84550; 85014; 85018; 85025; 85380; 85384; 85610; 85730; 86592; 86703; 86850; 86880; 86900; 86901; 86902; 88307; A9270; G0432; J0690; J2590; J2795; J7120

== ENCOUNTER 2024-08-18 13:35 | Outpatient (RCR) | payer BC, SELFPAY ==
--- NOTE | 2024-08-18 15:11 | PC.NURSE ---
In- 1335 Out- 1445 Reason for visit: latch issues, poor feeder History: Mom with a history of twin vaginal delivered on 05/[birth year]/24 at 37 weeks and 1 day . seen today was delivered in the breech position. Mom has a history of hypothyroidism, PCOS, IUI , and post hemorrhage after delivery with the twins. She also reported she did have a low milk supply with her first child. Mom takes synthroid and sertraine for hypothyroidism and depression/anxiety. Mom reports they have been followed by their stock room manager Dr Capps who up until this point has not been concerned with infants weight gain. Mom reports no painful or sore nipples and no pain with feeding or pumping. Mom reports no recent illnesses. Mom reports that this infant stops feeding before his twin brother most often and does not always seem satisfied by the feed. History: Observations: Mother works well with infant. latches to breast with chin close to the breast. Infant takes frequent pauses and occasionally delatches from breast and attempts to relatch. Infant tends to roll upper and lower lip. Infant is able to stick out tongue past his gum line. occasionally clicking sounds heard with suckling. Mom reports that the loses suction frequently and is typically a slow eater. Mom is not latching infant deeply enough at times, and is rolling top and bottom lip under. weight: 2640 g Lowest weight: 2510 g Pre-feed weight: 5225 g Post-feed weight: 5308 g Plan of Care: We did a pre and post feeding weight on this infant to assess milk transfer. For this feed the transferred 2.93 oz at the breast in about 20 min. This did appear a little fussy/unhappy post feed. Mom was able to get a good burp out of him. We discussed lip rolling and the how that can cause air to get in around the breast while is feeding. We Reviewed positioning and alignment, supporting breast, off-centered (asymmetrical latch) and leading with the chin with big, open, wide gape. Education given to the mother of how to visualize the suckling (with good rocking jaw motion) swallows (dropping of the lower jaw) and how to listen for drinking at the breast (the ka sound). The infant was able to maintain latch without discomfort to mother. Visual handouts were used to facilitate learning and encourage deeper latching and preventing infants lips from rolling in. Mother voiced understanding of the education shared. Mom was encouraged to offer the infant supplementation after to see if he takes it. We discussed that if infant takes more volume from the supplementation then continue to offer after each feed as desired. Follow up plans: Mom was encouraged to follow up with her stock room manager to discuss the need for further evaluation of weight and weight gain. Mother voiced understanding of the information and education and has contact resource information if she needs assistance in the future.
== END 2024-11-16 23:59 | disposition home or self-care (01) ==
LOC: ANHOBOP 13:35
PROVIDERS: PCP Internal Medicine; Visit Provider Obstetrics & Gynecology Gynecology
DX: Z39.1 Encounter for care and examination of lactating mother (principal)
CPT/HCPCS: 99212; G0463